=== PATIENT | male | born 1940 | race Caucasian/White ===

== ENCOUNTER 2022-12-07 08:45 | Outpatient (CLI) | payer MEDICARE, SELFPAY ==
--- NOTE | ~2022-12-07 | DEXA_ITS ---
Bone Density Report Name: KIRT PIERRE Age: 82 Sex: Male Ethnicity: White Date of : 1940 Indication: screening for osteoporosis; prior fracture; cancer; Referring Provider: BERENICE, BOB [place] Study: Bone densitometry was performed. Exam Date: December 07, 2022 Accession number: [id number] Bone Density: Region BMD T-score Z-score Classification AP Spine(L1-L4) 1.073 -0.2 1.1 Normal Femoral Neck (Left) 0.724 -1.5 0.2 Osteopenia Total Hip (Left) 0.782 -1.7 -0.4 Osteopenia Femoral Neck (Right) 0.563 -2.7 -1.0 Osteoporosis Total Hip (Right) 0.765 -1.8 -0.5 Osteopenia Total Hip Mean 0.774 -1.8 -0.5 Osteopenia World Health Organization criteria for BMD impression classify patients as: Normal (T-score at or above -1.0), Osteopenia (T-score between -1.0 and -2.5), or Osteoporosis (T-score at or below -2.5). 10-year Fracture Risk: FRAX not reported because: Some T-score for Spine Total or Hip Total or Femoral Neck at or below -2.5 Clinical Information Provided by Patient: Has had a low trauma fracture Has 3 or more alcoholic drinks per day Has used the following medications: Vitamin D Has the following medical conditions: Cancer Patient maximum height was 76 Drinks caffeinated beverages Impression: The patient has established osteoporosis, based on the Right Femoral Neck T-score and the existence of a prior fracture. The patient has risk factors, including: excessive alcohol use, previous fracture. Discussion: HIGH RISK OF FRACTURE. BONE DENSITY IS UNDESIRABLY LOW AT ONE OR MORE SKELETAL SITES, CONSISTENT WITH OSTEOPOROSIS. This patient's lowest T-score, in a patient who has previously fractured, meets the World Health Organization's (WHO) criteria for severe osteoporosis. In untreated patients, the risk of osteoporotic fracture increases approximately two-fold for each 1.0 SD decrease in T-score. Low bone density is not the only risk factor for fracture; also consider factors such as patient's age, frailty or poor health, risk of falling, risk of injury, previous osteoporotic fracture, family history of osteoporosis, cigarette smoking, low body weight, etc. Not everyone with low bone mineral density has osteoporosis; osteomalacia and other metabolic bone disorders should also be considered. Patients who have osteoporosis should be evaluated for specific diseases and conditions (secondary causes) that may cause or contribute to bone loss. The National Osteoporosis Foundation (NOF) recommends pharmacologic intervention for men with BMD at this level (a T-score of -2.5 or below). The patient should follow a healthful lifestyle (good nutrition with adequate calcium and vitamin D, and appropriate weight-bearing exercise). Follow-Up: Consider repeating this study in 2 years to reassess this patient's sta
== END 2022-12-07 08:46 | disposition home or self-care (01) ==
PROVIDERS: PCP Internal Medicine; Visit Provider Internal Medicine
DX: M81.0 Age-related osteoporosis without current pathological fracture (principal); M85.852 Other specified disorders of bone density and structure, left thigh; M85.851 Other specified disorders of bone density and structure, right thigh
CPT/HCPCS: 77080

== ENCOUNTER 2023-04-06 10:04 | Outpatient (CLI) | payer MEDICARE, SELFPAY ==
[2023-04-06 11:50] LABS: Basophils Percent Auto 0.6 % (0.2-1.2); Eosinophils Absolute Auto 0.2 K/mm3 (0-0.3); Eosinophils Percent Auto 2.4 % (0-4.4); Hematocrit 38.6 % (42.0-52.0); Hemoglobin 12.7 g/dL (14.0-18.0); Immature Granulocyte Absolute 0.01 K/mm3 (0.00-0.031); Immature Granulocyte Percent A 0.2 % (0-0.5); Lymphocytes Absolute Auto 0.63 K/mm3 (0.9-3.2); Lymphocytes Percent Auto 10.1 % (18.3-44.2); Mean Corpuscular HGB Conc 32.9 g/dl (32-36); Mean Corpuscular Hemoglobin 32.2 pg (26-34); Mean Platelet Volume 9.5 fl (7.4-10.4); Monocytes Absolute Auto 0.7 K/mm3 (0.1-0.6); Monocytes Percent Auto 10.6 % (2.6-8.5); Neutrophils Absolute Auto 4.7 K/mm3 (1.3-6.7); Neutrophils Percent Auto 76.1 % (45.5-73.1); Platelet Count Result 247 k/mm3 (150-375); Red Blood Count 3.94 M/mm3 (4.6-6.20); Red Cell Distribution Width 12.3 % (11.5-14.5); White Blood Count 6.2 K/mm3 (4.5-10.0)
[2023-04-06 11:54] LABS: Anion Gap 6 mmol/L (8-16); Blood Urea Nitrogen 13 mg/dL (9-20); Carbon Dioxide 28 mmol/L (22-30); Chloride 102 mmol/L (98-107); Estimated Glomerular Filt Rate > 60; Glucose 86 mg/dL (65-110); Potassium 4.8 mmol/L (3.4-5.0); Sodium 136 mmol/L (137-145)
[2023-04-06 11:55] LABS: Urine Cotinine NEGATIVE
[2023-04-06 12:02] LABS: Hemoglobin A1C 5.5 % (<5.7)
== END 2023-04-06 10:05 | disposition home or self-care (01) ==
LOC: ANHSURGERY 10:07
PROVIDERS: PCP Internal Medicine; Visit Provider Orthopaedic Surgery
DX: Z01.818 Encounter for other preprocedural examination (principal); M16.12 Unilateral primary osteoarthritis, left hip
CPT/HCPCS: 80048; 80307; 82040; 83036; 85025; 87081

== ENCOUNTER 2023-04-24 00:55 | Day surgery (SDC) | payer MEDICARE, SELFPAY ==
[2023-04-06 10:16] VITALS: BMI 25.8
--- NOTE | 2023-04-06 10:57 | PC.NURSE ---
Report to the Outpatient Waiting Room, entrance under the green pavilion located off [facility], at time ___0600____ on date _04/24/23 . Planned Procedure Time: __729 . Time changes happen often and if your time is changed the preop area will call you the afternoon before. - You and your visitor will be asked to self-screen and do not enter if you have any COVID symptoms. - A mask is optional within the hospital at this time. Patients may have clear liquids (water, carbonated beverages, clear teas, apple juice) until 3 hours prior to surgery with a maximum of 20 ounces. - No food from midnight until time of surgery - Infants may have breast milk until 4 hours before surgery, formula 6 hours prior to surgery. - Children will be allowed to drink immediately following surgery. If applicable, please bring a bottle or sippy cup to assist with drinking. Juice, water, soda, and popsicles are readily available. For infants on formula, please bring formula the day of surgery. Pacifiers are allowed. Take the following medications with a SIP of water the morning of surgery: ___NONE DO NOT STOP ANY OF YOUR OTHER PRESCRIPTION MEDICATIONS PRIOR TO SURGERY ?EXCEPT THE FOLLOWING Medications to discontinue per physician ____ASPIRIN AND ALL VITAMINS AND SUPPLEMENT PER DR RED Please no make-up, nail greek, hairspray, perfume, deodorant, or body powder the day of surgery. No jewelry (including any body piercings) or valuables the day of surgery, leave them at home. Please take a shower or bath the night before, or the morning of, surgery with an antibacterial soap. Wear comfortable, loose fitting clothing. Children are encouraged to wear pajamas. - Jewelry must be removed prior to entering the operating room. Rings and piercings that are not removed may be cut off. - The hospital will not accept responsibility for valuables. - Please leave all valuables, including medications, at home the day of surgery. If you are going home after surgery, a licensed fast food delivery driver must drive you home. - NO public transportation without another adult if you receive anesthesia. - We recommend that an adult stay with you for 24 hours following discharge. - We also recommend that you do not drive, make important decision, drink alcoholic beverages, or take any drugs that were not prescribed by your health care provider for at least 24 hours after your discharge time. For Pediatric surgeries, we recommend two adults accompany the child home. Follow any additional instructions given to you from your surgeon. If you or anyone in your household have experienced Covid symptoms in the past week, please notify your surgeon or the nurse liaison at the phone number below for possible testing. VERBAL AND WRITTEN instructions given to __PATIENT and asked if any additional questions and then verbalized understanding. Patient advised to call surgeon office or pre surgery nurse liaison [phone] if any additional questions.
[2023-04-06 10:59] VITALS: BP 139/90; PULSE 71; RESP 18; TEMP 36.8; O2SAT 97
--- NOTE | 2023-04-21 12:07 | PM.IMHP ---
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 Patient been having pain in his hip since October of this year. He is a very active 82-year-old but is finding it difficult to maintain his activity level due to pain coming from the hip. He has advanced osteoarthritis in the hip. He has tried anti-inflammatories without improvement of his symptoms. Patient feels that the pain is affecting his normal daily activities enough that he would rather proceed with total hip arthroplasty rather continue nonsurgical treatment Review of Systems Review of Systems: All systems reviewed & are unremarkable except as noted in HPI and below PMFSH Social History Social History Smoking status: Never smoker Additional smoking assessment comments: DENIES ANY FORM OF TOBACCO USE Alcohol intake: current Drinks per week: 3 Living arrangements: alone Spiritual care concerns: No Meds Home Medications and Allergies Home Medications Medication Instructions Recorded Confirmed Type aspirin 81 mg tablet,delayed 81 mg PO DAILY 04/06/23 04/06/23 History release (Adult Low Dose Aspirin) cyanocobalamin (vitamin B-12) 1,000 mcg PO DAILY 04/06/23 04/06/23 History 1,000 mcg tablet flaxseed oil 1,000 mg capsule 1,000 mg PO DAILY 04/06/23 04/06/23 History glucosamine sulf dipot 1 cap PO DAILY 04/06/23 04/06/23 History chlr,msm,chond 550 mg-C 30 mg-josselyn 1 mg capsule (Glucosamine Chondroitin) losartan 100 mg tablet 100 mg PO HS 04/06/23 04/06/23 History niacin 250 mg tablet 250 mg PO DAILY 04/06/23 04/06/23 History tumeric 100 mg-kp 150 mg-olive 1 cap PO DAILY 04/06/23 04/06/23 History 50 mg-oreg 150 mg-caprylate capsule zinc 50 mg tablet 50 mg PO DAILY 04/06/23 04/06/23 History Allergies Allergy/AdvReac Type Severity Reaction Status Date / Time No Known Allergies Allergy Verified 04/06/23 10:18 Exam Narrative: 82-year-old male alert. He is 6 ft 4 and 210 lb his BMI 25.6. His left hip flexes to 90? which cause a mild lateral hip pain. Internal rotation to 5? and external rotation 5? both causing him mild lateral hip pain. Stinchfield maneuver causes a mild lab and tear lateral hip pain. Laying supine left leg looks about a quarter of an inch short. There is no tenderness over the greater trochanter. He has normal abduction strength in lateral position. He has 1 to 2+ edema in the left foot no pedal edema 1+ pretibial edema on right. Patient has history of neuropathy in his feet and has diminished sensation up to about mid calf bilaterally. He has normal muscle strength to all muscle groups left lower extremity. 2+ dorsalis pedis pulse. Resp: Auscultation: clear to auscultation bilaterally Cardio: Rate: regular rate Rhythm: regular rhythm Assessment and Plan Assessment and plan (1) Hip arthritis: Code(s): M16.10 - Unilateral primary osteoarthritis, unspecified hip Status: Acute Plan 82-year-old male who has severe type 1 osteoarthritis left with significant symptoms on a daily basis. He is a very active individual and wishes to remain active. He would like to proceed with total hip arthroplasty at this point. Surgical procedure as well as the risks and complications were discussed in detail and all questions were answered and we will proceed. He will avoid any aspirin ibuprofen products 1 week prior to surgery. He will see his primary care doctor for pre-surgical clearance. He has seen cardiology and has been cleared without additional testing. Patient has Chem panel was all within normal limits creatinine 0.70. Hemoglobin 12.7 and platelets were 247. His nasal swab was negative. We will plan use Eliquis for DVT prophylaxis postoperatively.
[2023-04-24] VITALS (15 sets, daily range): BP systolic 103–139; BP diastolic 57–77; PULSE 70–103; RESP 11–18; TEMP 36.2–37.1; O2SAT 93–100
--- NOTE | ~2023-04-24 | XR_ITS ---
EXAMINATION: XR surgery orthopedic DATE: 04/24/2023 11:22 INDICATION: Intraoperative evaluation during anterior approach left total hip arthroplasty TECHNIQUE: Single frontal fluoroscopic image of the left hip and subsequent single portable frontal r adiograph of the lower pelvis were obtained during orthopedic procedure performed by Dr. Dobbs. Rad iologist was not present for the procedure or imaging. Fluoroscopy exposure time was 0.8 minutes. COMPARISON: None. FINDINGS: Intraoperative image during a left total hip arthroplasty demonstrate placement of an acetabular comp onent which appears in near anatomic alignment on the single image provided. A femoral broach is in place with the proximal tip centered over the acetabular component. Subsequent image demonstrates rep lacement of the broach with a noncemented femoral component. Alignment of the complete arthroplasty i s near-anatomic. There is expected postoperative soft tissue gas at the operative bed. No fractures i n the visualized bones. Portions of the pelvis are excluded from the [id number]. IMPRESSION: 1. Expected appearance during left total hip arthroplasty. Reviewed, dictated and finalized at location A.
--- NOTE | ~2023-04-24 | XR_ITS ---
EXAMINATION: XR hip LT 1V w AP pelvis DATE: 04/24/2023 11:42 INDICATION: Anterior approach left total hip arthroplasty TECHNIQUE: Anteroposterior view of the pelvis which excludes the iliac crests and cross-table lateral views of the left hip were obtained. COMPARISON: None. FINDINGS: Left total hip arthroplasty which is in near-anatomic alignment. No fracture. Mild osteoarthritis at the right hip. Surgical drain and expected lucent soft tissue gas at the operative bed at the left hi p. IMPRESSION: 1. Expected appearance post left total hip arthroplasty. Reviewed, dictated and finalized at location A.
[2023-04-24] MEDS: LACTATED RINGERS 1,000 ML 30 ML IV CONT ×2 (06:40→11:46)
--- NOTE | 2023-04-24 06:43 | P.PNAN_ITS ---
Anes - Initial Pre Proc Eval Procedure: Operation Date: 04/24/23 07:30 Proposed Procedures p Left Total Hip Arthroplasty, Anterior Approach - Yossi Dobbs MD Date/Time: 04/24/23 06:43 Surgeon: Yossi Dobbs MD Pre Op Diagnosis: O A Lt HIp Patient Data Age: 82 Gender: M Height: 1.96 m Weight: 98.9 kg Last Vital Signs Temp 36.8 C 04/06/23 10:59 Pulse 71 04/06/23 10:59 Resp 18 04/06/23 10:59 BP 139/90 04/06/23 10:59 Pulse Ox 97 04/06/23 10:59 O2 Del Method Room Air 04/06/23 10:59 Allergies Allergy/AdvReac Type Severity Reaction Status Date / Time No Known Allergies Allergy Verified 04/06/23 10:18 Home Medications Medication Instructions Recorded Confirmed Type aspirin 81 mg tablet,delayed 81 mg PO DAILY 04/06/23 04/06/23 History release (Adult Low Dose Aspirin) cyanocobalamin (vitamin B-12) 1,000 mcg PO DAILY 04/06/23 04/06/23 History 1,000 mcg tablet flaxseed oil 1,000 mg capsule 1,000 mg PO DAILY 04/06/23 04/06/23 History glucosamine sulf dipot 1 cap PO DAILY 04/06/23 04/06/23 History chlr,msm,chond 550 mg-C 30 mg-josselyn 1 mg capsule (Glucosamine Chondroitin) losartan 100 mg tablet 100 mg PO HS 04/06/23 04/06/23 History niacin 250 mg tablet 250 mg PO DAILY 04/06/23 04/06/23 History tumeric 100 mg-kp 150 mg-olive 1 cap PO DAILY 04/06/23 04/06/23 History 50 mg-oreg 150 mg-caprylate capsule zinc 50 mg tablet 50 mg PO DAILY 04/06/23 04/06/23 History Patient hx anesthesia problems: none Family hx anesthesia problems: none Results Review: All pre-operative results and documents have been reviewed as part of the pre- operative evaluation. [facility] Past Medical History Medical History (Updated 04/24/23 @ 06:44 by Mike Reina DO) History of prostate cancer Hypertension Osteoarthritis Surgical History Surgical History (Updated 04/24/23 @ 06:44 by Mike Reina DO) History of prostatectomy Social History Social History Smoking status: Never smoker Additional smoking assessment comments: DENIES ANY FORM OF TOBACCO USE Alcohol intake: current Drinks per week: 3 Living arrangements: alone Spiritual care concerns: No Anes - Eval Final PreProcedure Day of Procedure 04/24/23 06:43 Patient weight: overweight Heart: regular rate and rhythm Lungs: clear to auscultation Airway: Mallampati scale class III Neurological: alert and oriented Last oral intake: >/= 8 hours ASA classification: III Emergent: no Anesthetic plan: proceed Anesthesia type and monitoring: general ETT and standard monitoring Results Review: All pre-operative results and documents have been reviewed as part of the pre- operative evaluation. Informed Consent: The patient's anesthetic plan and its attendant risks and benefits were discussed with the patient/family/POA. Questions were solicited and answers provided to the satisfaction of the patient/family/POA.
[2023-04-24] MEDS: TRANEXAMIC ACID 1,000MG/ISO100 1,000 MG/100 ML BAG 200 MG IVPB (06:45)
[2023-04-24] MEDS: ACETAMINOPHEN 500 MG TABLET 1000 MG PO ×2 (06:48→13:14)
--- NOTE | 2023-04-24 07:21 | WPDHPUPDATE1 ---
History and Physical Update Update Date/Time: 04/24/23 07:21 History and Physical has been reviewed, including an updated exam of the patient. There are NO changes in the patient's condition. Risks, benefits, and alternatives have been discussed and questions answered. Patient agrees to proceed with procedure.
[2023-04-24] MEDS: ceFAZolin 2 GM/D5W 50 ML 2 GM/50 ML BAG IVPB (07:30)
[2023-04-24] MEDS: ceFAZolin SODIUM 1 GM VIAL 3 GM (08:02)
[2023-04-24] MEDS: TRANEXAMIC ACID 1,000 MG/10 ML AMPUL 1000 MG IV PUSH (11:05)
[2023-04-24] MEDS: ceFAZolin SODIUM 1 GM VIAL 2 GM IV PUSH (11:10)
--- NOTE | 2023-04-24 11:34 | W.PM.PROC2 ---
Procedure Note - Detailed Date of Procedure 04/24/23 Pre-op Diagnosis O A Lt HIp Post-op Diagnosis Same Procedure Performed Left total hip arthroplasty direct anterior approach Surgeon Yossi Dobbs MD Spinning Doffer carlos Anesthesia General Description of Procedure Patient was brought to the operating room and general anesthesia was administered. He received 2 g of Ancef weight based vancomycin 1 g of tranexamic acid preoperatively. Extra soft roll applied the feet boots applied patient transferred to the [facility] [place] table SCDs applied the legs. Left hip was prepped draped usual fashion. A 10 cm longitudinal incision was made starting 3 cm lateral to the ASIS. Dissection was carried down to the fascia over the tensor fascia octavio which was longitudinally incised elevated off the anterior 1/2 the TFL muscle and interval between TFL and rectus femoris developed. Crossing branches of ascending lateral femoral circumflex vessels were ligated with suture and divided. Retractor retractor was placed anterior capsule and the hip abducted internally rotated and the gluteus minimus elevated off the lateral capsule. Inverted T capsulotomy was performed. Femoral neck osteotomy made according to preoperative templating. A napkin ring of bone was removed from the femoral neck. Femoral head was rather huge. He had a very shallow acetabulum and very large peripheral femoral head large went we used a rongeur to Pare down the periphery of the femoral head to make it smaller and easy extraction. The paired down femoral head still measured 58 mm diameter. The acetabulum was exposed labrum excised. X-ray showed that her femoral neck cut was still a little bit long and we removed another 5 mm of medial neck. Leg was externally rotated and extended and the interval between conjoined tendon and piriformis incised which allowed the conjoined tendon to recess somewhat and the piriformis to flipped. With the leg back in the horizontal position leg in external rotation acetabulum was exposed. Under fluoroscopic guidance acetabulum was initially reamed with the 48 Reamer to fully medialized and then we gradually reamed up to 57 mm and we trialed with the 57 mm trial and was quite tight. A light reaming with a 58 mm Reamer was performed the 58 trial again tight. We chose the 58 pinnacle shell which was impacted at 40? of abduction and appropriate anteversion an excellent Press-Fit was achieved. A single screw was placed in the ilium for additional fixation. The 36 mm inner diameter neutral liner was placed without difficulty. Peripheral osteophytes that were around the acetabulum were debrided. Anteriorly there was an especially large osteophyte. Leg was extended externally rotated with the table hook in place which gave adequate exposure for proximal femoral preparation and we broached up to a size 11 which we inserted to what I thought was the appropriate depth. On trialing we could see that the depth the broach was appropriate. The 5 standard offset is quite lose the 8.5 seemed more appropriate with respect to soft tissue tension. It seemed however that we did not have adequate offset with the standard neck. The stability of the broach with a size 11 showed there was still torsional play after the trialing and we broached with a size 12 which meant much more resistance fully seating to the level of the calcar planed neck and had torsional stability and torque testing. We trialed with the high offset neck and +5 head this gave very appropriate stability and we took an intraoperative AP pelvis. Even with the large C-arm had his pelvis was too broad to let us see the lesser trochanters of both hips same time. The intraoperative AP portable x-ray showed that our leg lengths were equal. We finished up with the calcar planing and again checked the torsional stability of the 12 stem which was excellent without play. We chose the 12 Actis high offset stem which was inserted and ful
--- NOTE | 2023-04-24 11:35 | SUR.OPER ---
250mL clear yellow urine drained from diaz catheter
--- NOTE | 2023-04-24 11:48 | PM.OP ---
Procedure Note - Brief Procedure Note - Brief Date of procedure: 04/24/23 O A Lt HIp Procedure performed: Left anterior total hip arthroplasty Surgeon: MARIA GUADALUPE Olson Findings: 82-year-old male who underwent left anterior total hip arthroplasty on 04/24. I was about the procedure including positioning patient on the OR table as well as 1st assisting through the time of surgery. To time spent was 4hours
--- NOTE | 2023-04-24 13:40 | PC.NURSE ---
This patient, Yaron Tan, was admitted to [address] [facility] Surg Room 315-01. Patient/family oriented to hospital policies and general routines including ID bracelet, bed and alarms, visiting hours, pain management, procedures, bathroom and other care routines, personal items, smoking policy, room service/diet, and visiting hours. Information on how to activate the Rapid Response Team has been discussed. Patient/Family are encouraged to report perceived risks to care and to ask questions if they do not understand what they are told or what they should do.
--- NOTE | 2023-04-24 14:31 | PM.IMCN ---
Assessment and Plan Assessment and plan (1) Hip arthritis: Code(s): M16.10 - Unilateral primary osteoarthritis, unspecified hip Status: Acute Assessment and Plan: Status post left hip replacement. Continue to work with PT OT. Drain management per primary service. Patient will need a wheeled walker for ambulation upon discharge. (2) Hypertension: Qualifiers: Hypertension type: primary hypertension Qualified Code(s): I10 - Essential (primary) hypertension Code(s): I10 - Essential (primary) hypertension Status: Chronic Assessment and Plan: Stable, blood pressure reviewed on 04/24, resume home losartan. (3) S/P hip replacement: Code(s): Z96.649 - Presence of unspecified artificial hip joint Status: Acute Assessment and Plan: See 1 Plan Hospitalist services happy to help manage patient medically as well as overnight concerns. Thank you for allowing us to assist. HPI Data of Consult Consult date: 04/24/23 Requesting Physician: Yossi Dobbs MD Primary Care Provider: Ankur Reeder, Consult Narrative Reason for consult: Medical management postoperative Narrative: Yaron Tan is a 82 year old male with past history of hypertension the who was admitted for left hip replacement due to bone on bone arthritis failing conservative management. Patient is generally healthy primarily taking supplements and 1 medicine for hypertension. Patient had total left hip replacement completed today in the operating room and worked with physical therapy was able to ambulate but felt nauseated afterwards. Patient has a drain in place to his left hip with bloody drainage small amount. Patient denies any medical concerns at this time vital signs are stable. We will consult for overnight concerns and any additional medical concerns that arise. Review of Systems Review of Systems: All systems reviewed & are unremarkable except as noted in HPI and below [facility] Past Medical History Medical History (Updated 04/24/23 @ 16:13 by Matt Lopez APRN) History of prostate cancer Hypertension Osteoarthritis Surgical History Surgical History (Updated 04/24/23 @ 16:14 by Matt Lopez APRN) History of prostatectomy Social History Social History Smoking status: Never smoker Additional smoking assessment comments: DENIES ANY FORM OF TOBACCO USE Alcohol intake: current Drinks per week: 2 Substance use: never Lack of Transportation: No Lack of Food: Never True Current Housing: I Have Housing Concerned About Future Housing: No Difficulty Paying Gas/Electric Bills: No Difficulty Paying for Meds: No Currently Unemployed: No Education: Master's Degree or Higher Difficulty w/ Childcare or Family Care: No Living arrangements: alone Spiritual care concerns: No Meds Home Medications and Allergies Home Medications Medication Instructions Recorded Confirmed Type aspirin 81 mg tablet,delayed 81 mg PO DAILY 04/06/23 04/24/23 History release (Adult Low Dose Aspirin) cyanocobalamin (vitamin B-12) 1,000 mcg PO DAILY 04/06/23 04/24/23 History 1,000 mcg tablet flaxseed oil 1,000 mg capsule 1,000 mg PO DAILY 04/06/23 04/24/23 History glucosamine sulf dipot 1 cap PO DAILY 04/06/23 04/24/23 History chlr,msm,chond 550 mg-C 30 mg-josselyn 1 mg capsule (Glucosamine Chondroitin) losartan 100 mg tablet 100 mg PO HS 04/06/23 04/24/23 History niacin 250 mg tablet 250 mg PO DAILY 04/06/23 04/24/23 History tumeric 100 mg-kp 150 mg-olive 1 cap PO DAILY 04/06/23 04/24/23 History 50 mg-oreg 150 mg-caprylate capsule zinc 50 mg tablet 50 mg PO DAILY 04/06/23 04/24/23 History Allergies Allergy/AdvReac Type Severity Reaction Status Date / Time No Known Allergies Allergy Verified 04/24/23 07:11 Vital Signs Vital Signs - 24 hr 04/24/23 06:22 10
[2023-04-24] MEDS: SODIUM CHLORIDE 0.9% IV 1,000 ML 125 ML IV CONT (14:43)
[2023-04-24] MEDS: ceFAZolin 1 GM/NS 50 ML 1 GM/50 ML BAG IVPB ×2 (15:46→23:35)
[2023-04-24] MEDS: VANCOMYCIN 1,000 MG/NS 250 ML 1,000 MG/250 ML BAG 250 MG IVPB (18:22)
[2023-04-24] MEDS: LOSARTAN POTASSIUM 100 MG TABLET PO (20:26)
[2023-04-25] VITALS: BP 109/57; PULSE 76; PULSE 84; RESP 18; TEMP 37.1; O2SAT 98
[2023-04-25] MEDS: ACETAMINOPHEN 500 MG TABLET 1000 MG PO ×2 (02:47→08:09)
[2023-04-25] MEDS: oxyCODONE HCL (*CRX) 5 MG TAB IR PO ×2 (02:47→08:28)
[2023-04-25 04:00] VITALS: BP 108/63; PULSE 78; PULSE 81; RESP 18; TEMP 36.6; O2SAT 94
[2023-04-25] MEDS: VANCOMYCIN 1,000 MG/NS 250 ML 1,000 MG/250 ML BAG 250 MG IVPB (06:36)
--- NOTE | 2023-04-25 06:40 | PM.PNORT ---
Subjective Subjective Date/Time Seen: 04/25/23 06:40 Interval history: Postop day 1 patient is alert. He is afebrile vital signs are stable. Drain is dressing was changed. Patient was up walking yesterday with therapy comfortable. He had increased pain overnight when soft tissue block for off. This morning he is comfortable and pain is under control. Neurovascularly is not completed yet. Overall patient is doing well. Patient will work with therapy this morning and if he is comfortable being discharged home late this morning. If he feels he needs an additional therapy session he will stay till this afternoon and then leave early this afternoon. Patient does have a family history of stroke. We will also restart his baby aspirin this morning decrease Celebrex 200 mg a day. Objective Data Vital Signs Vital Signs: Vital Signs - 24 hr 04/24/23 11:46 04/24/23 12:00 04/24/23 12:15 Temperature 36.2 C L Pulse Rate 88 82 80 Respiratory Rate 12 12 11 L Blood Pressure 114/65 128/76 128/76 Pulse Oximetry 100 100 100 Oxygen Delivery Simple Face Mask Simple Face Mask Simple Face Mask Oxygen Flow Rate 8 8 8 04/24/23 12:30 04/24/23 12:45 04/24/23 13:00 Temperature Pulse Rate 78 79 74 Respiratory Rate 11 L 12 16 Blood Pressure 118/75 110/74 113/70 Pulse Oximetry 100 96 96 Oxygen Delivery Simple Face Mask Room Air Room Air Oxygen Flow Rate 8 04/24/23 13:15 04/24/23 13:25 04/24/23 14:11 Temperature Pulse Rate 75 72 Respiratory Rate 14 12 Blood Pressure 112/71 116/69 Pulse Oximetry 99 98 Oxygen Delivery Room Air Room Air Room Air Oxygen Flow Rate 04/24/23 13:40 04/24/23 13:55 04/24/23 14:25 Temperature 36.4 C 36.4 C L 36.5 C Pulse Rate 70 72 70 Respiratory Rate 14 14 16 Blood Pressure 117/65 115/65 139/77 Pulse Oximetry 97 99 99 Oxygen Delivery Oxygen Flow Rate 04/24/23 15:25 04/24/23 13:40 04/24/23 16:00 Temperature 36.4 C L Pulse Rate 76 76 Respiratory Rate 14 Blood Pressure 120/57 L Pulse Oximetry 97 Oxygen Delivery Room Air Oxygen Flow Rate 04/24/23 20:00 04/24/23 20:00 04/25/23 00:00 Temperature 37.1 C 37.1 C Pulse Rate 79 76 Respiratory Rate 18 18 Blood Pressure 103/64 109/57 L Pulse Oximetry 99 98 Oxygen Delivery Room Air Oxygen Flow Rate 04/24/23 20:00 04/25/23 00:00 04/25/23 04:00 Temperature Pulse Rate 77 84 78 Respiratory Rate Blood Pressure Pulse Oximetry Oxygen Delivery Oxygen Flow Rate 04/25/23 04:00 Temperature 36.6 C Pulse Rate 81 Respiratory Rate 18 Blood Pressure 108/63 Pulse Oximetry 94 Oxygen Delivery Oxygen Flow Rate Intake/Output Intake/Output: Intake & Output 04/22/23 04/23/23 04/24/23 04/25/23 23:59 23:59 23:59 23:59 Intake Total 1240 400 Output Total 40 70 Balance 1200 330 Meds/Results Medications: Active Medications Generic Name Dose Route Start Last Admin Trade Name Freq PRN Reason Stop Dose Admin Acetaminophen 1,000 mg 04/24/23 19:00 04/25/23 02:47 Acetaminophen 500 Mg Tablet PO 1,000 mg Q6H TRIXIE Administration Apixaban 2.5 mg 04/25/23 09:00 Apixaban 2.5 Mg Tablet PO Q12HR TRIXIE Cefdinir 300 mg 04/25/23 18:00 Cefdinir 300 Mg Capsule PO Q12H TRIXIE Celecoxib 200 mg 04/25/23 09:00 Celecoxib 200 Mg Capsule PO DAILY [facility] Famotidine 20 mg 04/24/23 21:00 04/24/23 22:02 Famotidine 20 Mg Tablet PO Not Given Q12HR TRIXIE Hydroxyzine HCl 50 mg 04/24/23 13:31 Hydroxyzine Hcl 25 Mg Tablet PO Q4H PRN Itching Cefazolin Sodium 1 gm in 50 mls @ 100 mls/hr 04/24/23 15:30 04/25/23 00:05 Ancef 1 Gm/Ns 50 Ml IVPB 04/25/23 07:59 Infused Q8H [facility] Infusion Vancomycin HCl 1,000 mg in 250 mls @ 250 mls/hr 04/24/23 19:00 04/25/23 06:36 Vancomycin 1,000 Mg/Ns 250 Ml IVPB 04/25/23 07:59 250 mls/hr Q12H [facility] Administration Losartan Potassium 100 mg 04/24/23 21:00 04/24/23 20:26 Neo
--- NOTE | 2023-04-25 06:46 | PM.DS ---
DS: Admitting Diagnosis Discharge Date 04/25 Admitting Diagnosis Left hip DJD DS: Discharge Diagnosis Discharge Diagnosis (1) Hip arthritis: Code(s): M16.10 - Unilateral primary osteoarthritis, unspecified hip Status: Acute DS: Summary Hospital Course Hospital Course: 82-year-old male underwent left anterior total hip arthroplasty on 04/24. Postoperatively he has been afebrile vital signs are stable. He is weight-bearing as tolerated. He does have history of osteoporosis and his bones were all soft the time surgery so we will have him use walker for 1 month to limit his activities. He is on Eliquis for DVT prophylaxis. Patient was up walking the day of surgery and comfortable. He had a little bit increase of pain overnight with a soft tissue block wore off but at this point his pain is well controlled with scheduled Tylenol as well as oxycodone 5 mg. Patient is a strong family history of stroke and was concerned about this and therefore we will be aspirin postoperatively. We will decrease Celebrex 200 mg a day for 10 days for heterotopic bone formation prophylaxis. He will go home with 1 week course of Omnicef. Patient keep leg elevated home prevent swelling. Again he was and to make sure that he is using grown full-time basis home. He also go home Senokot and MiraLax. Patient was advised any questions or concerns he is to call the office otherwise we will see him at his appointment. Time Spent with Patient Time attestation: Total time spent providing and/or coordinating discharge services: DS: Data Data Completed and Pending Labs on day of discharge: Labs from last 24 hours 04/24/23 06:41 Blood Type A Positive Antibody Screen Negative Discharge Plan Discharge Patient Disposition: Home, Self-Care Discharge Instructions: YOSSI DOBBS M.D [facility] [address] [place] [id number] POST-OPERATIVE DISCHARGE INSTRUCTIONS ANTERIOR TOTAL HIP ARTHROPLASTY 1. Move toes/feet up and down every hour while awake. 2. Be up walking every hour while awake. 3. Avoid sitting in a chair unless eating, receiving visitors or using the toilet. 4. When resting, lie on back with leg elevated above heart to minimize swelling. Significant swelling could indicate a blood clot and if this occurs, call the office (or go to the ER) to have a venous ultrasound performed. 5. Wound Care: Keep dry sponge on wound for 2 weeks. Use minimal tape. 6. Follow weight bearing status as instructed. 7. May shower with dressing off. 8. Patient is uses walker for 1 month. He is weight-bearing as tolerated on the left leg. Stand Alone Forms: General Discharge Instructions Follow-up/Referrals: Yossi Dobbs MD [Physician] - Keep Reg. Scheduled Appt. Discharge Medications: New acetaminophen 500 mg Tablet 1,000 mg PO Q6H Qty: 90 0RF Eliquis 2.5 mg Tablet 2.5 mg PO Q12HR Qty: 70 0RF polyethylene glycol 3350 [Miralax] 17 gram Powder In Packet 17 g PO QAM Qty: 30 0RF sennosides-docusate sodium [Senokot-S] 8.6-50 mg Tablet 2 tab PO BID Qty: 60 0RF celecoxib [Celebrex] 100 mg Capsule 100 mg PO DAILY@0800 Qty: 10 0RF cefdinir 300 mg Capsule 300 mg PO Q12H Qty: 14 0RF oxycodone 5 mg Tablet 5 mg PO Q4HR Qty: 30 0RF Continued losartan 100 mg tablet 100 mg PO HS cyanocobalamin (vitamin B-12) 1,000 mcg Tablet 1,000 mcg PO DAILY aspirin [Adult Low Dose Aspirin] 81 mg Tablet,Delayed Release (Dr/Ec) 81 mg PO DAILY niacin 250 mg Tablet 250 mg PO DAILY flaxseed oil 1,000 mg Capsule 1,000 mg PO DAILY Rx Instructions: administer with a meal zinc 50 mg Tablet 50 mg PO DAILY Discontinued Glucosamine Chondroitin 550-30-1 mg Capsule 1 cap PO DAILY biviurt-aaxe-mddtz-oreg-capryl 100 mg-150 mg- 50 mg-150 mg Capsule 1 cap PO DAILY
[2023-04-25 06:58] LABS: Basophils Absolute Auto 0.1 K/mm3 (0.0-0.1); Basophils Percent Auto 0.6 % (0.2-1.2); Eosinophils Percent Auto 0.3 % (0-4.4); Hematocrit 30.3 % (42.0-52.0); Hemoglobin 9.7 g/dL (14.0-18.0); Immature Granulocyte Absolute 0.04 K/mm3 (0.00-0.031); Immature Granulocyte Percent A 0.4 % (0-0.5); Lymphocytes Absolute Auto 0.72 K/mm3 (0.9-3.2); Lymphocytes Percent Auto 7.5 % (18.3-44.2); Mean Corpuscular Hemoglobin 31.5 pg (26-34); Mean Corpuscular Volume 98.4 fl (80-100); Mean Platelet Volume 9.8 fl (7.4-10.4); Monocytes Absolute Auto 1.1 K/mm3 (0.1-0.6); Monocytes Percent Auto 11.7 % (2.6-8.5); Neutrophils Absolute Auto 7.6 K/mm3 (1.3-6.7); Neutrophils Percent Auto 79.5 % (45.5-73.1); Platelet Count Result 200 k/mm3 (150-375); Red Blood Count 3.08 M/mm3 (4.6-6.20); Red Cell Distribution Width 12.6 % (11.5-14.5); White Blood Count 9.6 K/mm3 (4.5-10.0)
[2023-04-25 07:09] LABS: Anion Gap 4 mmol/L (8-16); Blood Urea Nitrogen 21 mg/dL (9-20); Calcium 7.6 mg/dL (8.4-10.2); Carbon Dioxide 26 mmol/L (22-30); Chloride 102 mmol/L (98-107); Estimated CRCL calculation 98 ml/min; Estimated Glomerular Filt Rate > 60; Glucose 112 mg/dL (65-110); Sodium 132 mmol/L (137-145)
[2023-04-25 07:51] VITALS: BP 107/57; PULSE 83; RESP 22; TEMP 37.2; O2SAT 98
[2023-04-25 08:00] VITALS: PULSE 76
[2023-04-25] MEDS: ceFAZolin 1 GM/NS 50 ML 1 GM/50 ML BAG IVPB (08:08)
[2023-04-25] MEDS: CELECOXIB 100 MG CAPSULE PO (08:09)
[2023-04-25] MEDS: APIXABAN 2.5 MG TABLET PO (08:09)
[2023-04-25] MEDS: FAMOTIDINE 20 MG TABLET PO (08:09)
[2023-04-25] MEDS: ASPIRIN 81 MG CHEWABLE TABLET PO (08:09)
[2023-04-25 12:00] VITALS: BP 95/55; PULSE 77; PULSE 83; RESP 20; TEMP 37.1; O2SAT 94
--- NOTE | 2023-04-25 15:09 | PM.IMPN ---
Progress Note: A&P Assessment and Plan (1) S/P hip replacement: Code(s): Z96.649 - Presence of unspecified artificial hip joint Status: Acute Assessment and Plan: 04/25/23: postop day 1 of a left total hip replacement Ortho planning for discharge today continue pain control PT and OT patient to use walker for 1 month due to his osteopenia osteoporosis will be discharged on Omnicef, MiraLax, stool softener patient will follow-up with ortho in 1 week (2) Hypertension: Qualifiers: Hypertension type: primary hypertension Qualified Code(s): I10 - Essential (primary) hypertension Code(s): I10 - Essential (primary) hypertension Status: Chronic Assessment and Plan: 04/25/23: Discussed with patient to follow up with primary care physician for blood pressure check as he is running lower that normal. B/P 95/55 - 108/63 Time Spent With Patient Time with patient: Greater than 35 minutes Subjective Date/time seen: 04/25/23 15:09 Interval history: This is an 82-year-old male who is postop day 1 from a left total hip replacement. Patient has history of osteopenia and osteoporosis. Labs today reveal white blood cell count of 9.6, RBC 3.08, hemoglobin 9.7, hematocrit 30.3, sodium 132, potassium 4.0, BUN 21, creatinine 0.6, blood sugars ranging 86-112, hemoglobin A1c 5.5. On examination today patient is alert and oriented x4, vital signs are stable with the exception that his blood pressure is running slightly lower than his normal, he is afebrile, he is on room air. He states that his pain is well controlled. He has no new complaints today. Review of Systems Review of Systems: All systems reviewed & are unremarkable except as noted in HPI and below Constitutional: Constitutional: Reports as per HPI, Reports no additional constitutional complaints, Denies body ache(s) and Denies chills Eyes: Eyes: Reports as per HPI and Reports no additional eye complaints ENT: Reports system reviewed and no additional complaints, except as documented and Reports as per HPI Cardiovascular: Cardiovascular: Reports as per HPI, Reports no additional cardiovascular complaints, Denies chest pain and Denies leg edema Respiratory: Respiratory: Reports as per HPI, Reports no additional respiratory complaints, Denies cough and Denies dyspnea Gastrointestinal: Gastrointestinal: Reports as per HPI, Reports no additional gastrointestinal complaints, Denies abdominal pain, Denies diarrhea, Denies nausea and Denies vomiting Genitourinary: Genitourinary: Reports no additional male genitourinary complaints and Reports as per HPI Musculoskeletal: Musculoskeletal: Reports no additional musculoskeletal complaints and Reports as per HPI Integumentary/Breasts: Skin/Breast: Reports system reviewed and no additional complaints, except as docu and Reports as per HPI Neurologic: Reports system reviewed and no additional complaints, except as documented, Reports as per HPI, Denies Abnormal speech present, Denies abnormal gait, Denies confusion, Denies vertigo, Denies headache(s) and Denies numbness Psychiatric: Psychiatric: Reports no additional psychiatric complaints, Reports as per HPI, Denies anxiety and Denies depression Exam Const: General: comfortable and no acute distress HENMT: Mouth: Yes moist mucous membranes Eyes: General: appearance normal, both eyes and all related structures Sclera: sclerae normal Pupils: Equal, round and reactive pupils present EOM: EOMs intact bilaterally Neck: Neck: supple and no JVD Thyroid: thyroid normal Carotids: no bruits Lymphatic: lymphadenopathy not noted Other: trachea midline Resp: Effort & Inspection: normal respiratory effort Auscultation: clear to auscultation bilaterally, no crackles, no rales, no rhonchi and no wheezes Cardio: Rate: regular rate Rhythm: regular rhythm Heart sounds: no gallops, no murmurs and no rubs Other: Normal S1 and S2
[2023-04-25 15:46] VITALS: BP 110/70; PULSE 81; RESP 20; TEMP 36.9; O2SAT 100
== END 2023-04-25 16:25 | disposition home or self-care (01) ==
LOC: ANHSURGERY 06:08 → ANH3MEDSUR 13:34
PROVIDERS: Physician Assistant Surgical; PCP Internal Medicine; Visit Provider Orthopaedic Surgery
PROC: (CPT 27130; principal; 2023-04-24 07:30)
DX: M16.12 Unilateral primary osteoarthritis, left hip (principal); I10 Essential (primary) hypertension; M81.0 Age-related osteoporosis without current pathological fracture; Z85.46 Personal history of malignant neoplasm of prostate; Z79.82 Long term (current) use of aspirin
CPT/HCPCS: 27130; 36415; 73501; 80048; 80307; 82040; 83036; 85025; 86850; 86900; 86901; 87081; 97110; 97116; 97161; 97165; 97530; 97535; 99199; A9270; C1776; J0171; J0690; J1100; J1170; J1885; J2270; J2405; J2704; J2795; J3010; J3370; J7030; J7120